=== PATIENT | female | born 1985 | race African-American/Black ===

== ENCOUNTER 2019-03-08 11:16 | Emergency (ER) | payer OTHER ==
[~2019-03-08] VITALS: Ht 165.1 cm; Wt 64.0 kg
[2019-03-08 12:25] LABS: BASOPHILS % 0.5 % (0.0-2.0); HEMOGLOBIN. 13.3 g/dL (12.0-16.0); LYMPHOCYTES % 36.1 % (20.0-50.0); MEAN CORPUSCULAR HEMOGLOBIN 28.2 pg (28.0-32.0); MEAN CORPUSCULAR VOLUME 84.8 fL (81.0-99.0); MEAN PLATELET VOLUME 8.2 fl (7.4-10.4); MONOCYTES % 6.6 % (2.0-8.0); NEUTROPHILS % 53.8 % (40.0-76.0); PLATELET 313 x1000/uL (130-400); RED BLOOD CELL COUNT 4.72 mill/uL (4.2-5.4); RED CELL DISTRIBUTION WIDTH 12.7 % (11.6-14.6)
[2019-03-08 12:33] LABS: CHLORIDE 104 mEq/L (98-107)
[2019-03-08 12:39] LABS: HCG SCREEN NEGATIVE
[2019-03-08 15:34] VITALS: BP 123/82
== END 2019-03-08 15:34 | disposition home or self-care (01) ==
LOC: ER 11:16
DX: R55 Syncope and collapse (principal); R42 Dizziness and giddiness
CPT/HCPCS: 36415; 71045; 81025; 83735; 83880; 84484; 84703; 93005; 99284